=== PATIENT | male | born 1985 | race Two or more races ===

== ENCOUNTER 2023-07-11 17:49 | Emergency (ER) | payer SELFPAY ==
[~2023-07-11] VITALS: Ht 175.3 cm; Wt 91.4 kg
[2023-07-11 18:05] VITALS: BP 128/80
[2023-07-11 18:41] LABS: Basophils # (auto) 0.1 10 ^3/uL (0-0.2); Basophils % (auto) 0.3 % (0.0-2.0); Eosinophils # (auto) 0 10 ^3/uL (0-0.8); Eosinophils % (auto) 0.1 % (0.0-7.0); Hematocrit 45.7 % (41.0-53.0); Hemoglobin 15.2 g/dL (13.5-17.5); Lymphocytes # (auto) 1.6 10 ^3/uL (0.4-5.4); Mean Corpuscular Hgb Conc. 33.3 g/dL (32.0-36.0); Mean Corpuscular Volume 90.2 fL (80.0-100.0); Monocytes % (auto) 6.4 % (0.0-12.0); Neutrophils # (auto) 13.6 10 ^3/uL (1.6-8.6); Neutrophils % (auto) 83.2 % (37.0-80.0); Red Blood Cells 5.07 10^6/uL (4.5-5.90); Red Cell Distribution Width 14.4 % (11.8-14.3); White Blood Cell 16.4 10^3/uL (4.4-10.8)
[2023-07-11] MEDS ORDERED: IOHEXOL 300 MG/ML 100ML BOTTLE IJ ONE (18:45)
[2023-07-11 18:57] LABS: INR 0.99 (0.9-1.15); Partial Thromboplastin Time 25.2 SEC (24.5-34.5); Prothrombin Time 10.4 sec (9.3-11.8)
[2023-07-11 19:00] LABS: Alanine Aminotransferase 72 U/L (7-40); Alkaline Phosphatase 79 U/L (46-116); Anion Gap 8 (5-15); Aspartate Aminotransferase 53 U/L (13-40); BUN/Creatinine Ratio 6.8 (10.0-20.0); Bilirubin, Total 0.4 mg/dL (0.2-1.0); Blood Urea Nitrogen 6 mg/dL (9-23); Calcium 9.5 mg/dL (8.5-10.1); Carbon Dioxide 28 mmol/L (20-30); Chloride 102 mmol/L (98-107); Glucose 97 mg/dL (74-106); Potassium 4.3 mmol/L (3.5-5.1); Sodium 138 mmol/L (136-145); Total Protein 7.7 g/dL (5.7-8.2)
[2023-07-11] MEDS ORDERED: IOHEXOL 350 MG/ML 100ML IJ ONE (22:19)
[2023-07-11] MEDS ORDERED: ACET500T58 PO (22:29)
[2023-07-11] MEDS ORDERED: IBUP-1455 PO (22:29)
[2023-07-12] MEDS: ACETAMINOPHEN 500 MG TAB PO ONE
[2023-07-12 00:13] VITALS: PULSE 86; RESP 20; O2SAT 100
== END 2023-07-12 00:15 | disposition home or self-care (01) ==
LOC: ER 17:49
DX: S42.001A Fracture of unspecified part of right clavicle, initial encounter for closed fracture (principal); M25.561 Pain in right knee; R51.9 Headache, unspecified; Z79.899 Other long term (current) drug therapy; V89.9XXA Person injured in unspecified vehicle accident, initial encounter; Y93.55 Activity, bike riding; Y92.89 Other specified places as the place of occurrence of the external cause; Y99.8 Other external cause status
CPT/HCPCS: 36415; 70450; 71260; 72125; 73030; 73562; 74177; 80053; 84484; 85025; 85610; 85730; 99285; Q9967

== ENCOUNTER 2023-07-15 22:35 | Emergency (ER) | payer SELFPAY ==
[~2023-07-15] VITALS: Ht 182.9 cm; Wt 90.7 kg
[~2023-07-15 22:35] MED LIST: ACET500T58 PO; IBUP-1455 PO
[2023-07-15] MEDS: ACTIVATED CHARCOAL 50 GM/240 ML SOL PO ONE (22:45)
[2023-07-15] MEDS: HALOPERIDOL LACTATE 5 MG/ML INJ VIAL IM ONE (23:15)
[2023-07-15] MEDS: diphenhdrAMINE HCL 50 MG/1 ML VL IV ONE (23:24)
[2023-07-15] MEDS: SODIUM CHLORIDE 0.9% 1,000 ML IV ONE (23:24)
[2023-07-15] MEDS: LORazepam 2MG/ML-1ML VIAL IV ONE (23:28)
[2023-07-15 23:36] LABS: Basophils # (auto) 0.1 10 ^3/uL (0-0.2); Basophils % (auto) 0.7 % (0.0-2.0); Eosinophils # (auto) 0.1 10 ^3/uL (0-0.8); Eosinophils % (auto) 1.3 % (0.0-7.0); Hematocrit 41.2 % (41.0-53.0); Hemoglobin 13.8 g/dL (13.5-17.5); Lymphocytes # (auto) 2.3 10 ^3/uL (0.4-5.4); Mean Corpuscular Hemoglobin 30.3 pg (28.0-32.0); Mean Corpuscular Hgb Conc. 33.4 g/dL (32.0-36.0); Mean Corpuscular Volume 90.7 fL (80.0-100.0); Monocytes # (auto) 0.5 10 ^3/uL (0-1.3); Monocytes % (auto) 7.1 % (0.0-12.0); Neutrophils # (auto) 4.5 10 ^3/uL (1.6-8.6); Neutrophils % (auto) 59.9 % (37.0-80.0); Nucleated Red Blood Cells % 0.1 %; Red Blood Cells 4.55 10^6/uL (4.5-5.90); Red Cell Distribution Width 14.5 % (11.8-14.3); White Blood Cell 7.5 10^3/uL (4.4-10.8)
[2023-07-15 23:42] LABS: Urine Bacteria NONE SEEN /hpf (None Seen); Urine Blood Negative /uL (Negative); Urine Clarity Clear (Clear); Urine Color Colorless (Yellow); Urine Protein, UAD Negative (Negative); Urine Specific Gravity 1.014 (1.001-1.035); Urine Urobilinogen Normal (Negative); Urine WBC <1 /hpf (0 - 3); Urine pH 5.5 (5.0-8.0)
[2023-07-15 23:49] LABS: Salicylate < 3.0 mg/dL (2.8-20.0)
[2023-07-16 00:27] VITALS: PULSE 128; RESP 21; O2SAT 96
[2023-07-16 02:35] LABS: Alanine Aminotransferase 23 U/L (7-40); Albumin 3.7 g/dL (3.2-4.8); Alkaline Phosphatase 103 U/L (46-116); Anion Gap 16 (5-15); Aspartate Aminotransferase 220 U/L (13-40); BUN/Creatinine Ratio 7.9 (10.0-20.0); Bilirubin, Total 0.9 mg/dL (0.2-1.0); Blood Urea Nitrogen 8 mg/dL (9-23); Carbon Dioxide 30 mmol/L (20-30); Glucose 123 mg/dL (74-106); Sodium 135 mmol/L (136-145)
[2023-07-16 02:36] LABS: Total Protein 7.4 g/dL (5.7-8.2)
[2023-07-16] MEDS: SODIUM CHLORIDE 0.9% 1,000 ML IV ONE (02:37)
[2023-07-16 02:41] LABS: Chloride 89 mmol/L (98-107)
[2023-07-16 02:43] LABS: Potassium 2.4 mmol/L (3.5-5.1)
[2023-07-16 03:00] VITALS: TEMP 98
[2023-07-16] MEDS: POTASSIUM CHL 20MEQ/100ML 100 ML IV ONE (03:03)
[2023-07-16 03:06] LABS: Blood Alcohol 310.8 mg/dL (<10)
[2023-07-16 04:21] LABS: Amphetamine Screen, Urine Neg (NEGATIVE); Barbiturate Scree,Urine Neg (NEGATIVE); Benzodiazephine Screen, Urine Neg (NEGATIVE); Cocaine Screen, Urine Neg (NEGATIVE); Opiate Scree,Urine Neg (NEGATIVE); Phencyclidine Screen, Urine Neg (NEGATIVE)
[2023-07-16 04:22] LABS: Cannabinoid Screen, Urine Neg (NEGATIVE)
[2023-07-16 08:00] VITALS: PULSE 84; RESP 17; O2SAT 94
[2023-07-16 10:12] LABS: Potassium 3.3 mmol/L (3.5-5.1)
[2023-07-16 10:19] LABS: Blood Alcohol 30.5 mg/dL (<10)
[2023-07-16] MEDS: POTASSIUM EFFERVESENT TAB 25 MEQ PO ONE (13:09)
[2023-07-16] MEDS: SERTRALINE HCL 50 MG TAB PO SCH (13:09)
[2023-07-16 14:00] VITALS: BP 126/75; PULSE 73; RESP 14; O2SAT 95
[2023-07-16 16:40] LABS: Alanine Aminotransferase 56 U/L (7-40); Albumin 3.9 g/dL (3.2-4.8); Alkaline Phosphatase 66 U/L (46-116); Anion Gap 10 (5-15); Aspartate Aminotransferase 65 U/L (13-40); Blood Urea Nitrogen 5 mg/dL (9-23); Calcium 8.4 mg/dL (8.7-10.4); Carbon Dioxide 23 mmol/L (20-30); Glucose 92 mg/dL (74-106); Potassium 3.8 mmol/L (3.5-5.1); Sodium 142 mmol/L (136-145)
[2023-07-16 16:41] LABS: Bilirubin, Total 0.6 mg/dL (0.2-1.0); Total Protein 6.3 g/dL (5.7-8.2)
[2023-07-16 16:46] LABS: Chloride 109 mmol/L (98-107)
== END 2023-07-16 18:19 | disposition left against medical advice (07) ==
LOC: ER 22:35 → EDBD 22:35 → ER 07-16 18:19
DX: T39.1X1A Poisoning by 4-Aminophenol derivatives, accidental (unintentional), initial encounter (principal); F10.129 Alcohol abuse with intoxication, unspecified; E87.6 Hypokalemia; Y92.89 Other specified places as the place of occurrence of the external cause; Y90.0 Blood alcohol level of less than 20 mg/100 ml
CPT/HCPCS: 36415; 71045; 80053; 80307; 80320; 80329; 81001; 84132; 85025; 93005; 96361; 96365; 96366; 96372; 96375; 99285; J1200; J1630; J2060; J3480; J7030